=== PATIENT | female | born 1995 | race Caucasian/White ===

== ENCOUNTER 2021-02-08 19:23 | Inpatient (IN) | payer BC ==
[2021-02-08] MEDS ORDERED: Ondansetron 4 MG/2 ML SDV IVPUSH PRN (19:57)
[2021-02-08] MEDS ORDERED: Sodium Chloride 0.9% 10 ML Syringe FLUSH PRN (19:57)
[2021-02-08] MEDS ORDERED: Nalbuphine 10 MG/1 ML Vial IVPUSH PRN (19:57)
[2021-02-08] MEDS ORDERED: Ampicillin 2 GM in Sodium Chloride 0.9% 100 ML IV ONE (20:00)
[2021-02-08] MEDS ORDERED: Oxytocin/Lactated Ringers 10 UNIT/1,000 ML BAG IV SCH (20:00)
--- NOTE | 2021-02-08 20:01 | PCM.LDHP ---
L&D History of Present Illness - General Date of Service: 02/08/21 Admit Problem/Dx: Patient Status Order with Admit Dx/Problem 02/08/21 19:31 Patient Status [ADT] Routine 02/08/21 19:57 Patient Status [ADT] Routine Admission Diagnosis/Problem Admission Diagnosis/Problem Source of Information: Patient History Limitations: Reports: No Limitations - History of Present Illness Introduction:: 25 y/o at 39 5/7 wks who presents in labor. Contractions started today. Have picked up over course of evening. On L&D had SROM. 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: : 1 Para: 0 LMP (Approximate): - Past Surgical History HEENT Surgical History: Reports: Oral Surgery (wisdom tooth extraction) Social & Family History - Tobacco Use Tobacco Use Status *Q: Never Tobacco User - Alcohol Use Alcohol Use History: No - Recreational Drug Use Recreational Drug Use: No H&P Review of Systems - Review of Systems: Review Of Systems: See Below General: Reports: No Symptoms Pulmonary: Reports: No Symptoms Cardiovascular: Reports: No Symptoms Gastrointestinal: Reports: No Symptoms Genitourinary: Reports: No Symptoms Musculoskeletal: Reports: No Symptoms Neurological: Reports: No Symptoms L&D Exam - Exam Exam: See Below - OB Specific Contraction Intensity: Moderate to Strong Movement: Active Heart Tones: Present Heart Tones per Min: 140 Heart Rate (FHR) Variability: Moderate (6-25 bmp) Presentation: Vertex - Exam General: Alert, Oriented, Cooperative Lungs: Clear to Auscultation, Normal Respiratory Effort Cardiovascular: Regular Rate, Regular Rhythm GI/Abdominal Exam: Soft, Non-Tender Genitourinary: Normal external exam Extremities: Normal Inspection Skin: Warm, Dry, Intact - Patient Data Result Diagrams: 02/08/21 20:10 - Problem List (1) 39 weeks gestation of SNOMED Code(s): 20432390 ICD Code: Z3A.39 - 39 WEEKS GESTATION OF Status: Acute Current Visit: Yes (2) GBS (group B Streptococcus carrier), +RV culture, currently SNOMED Code(s): 0621331917570, 328328063, 6219444918344 ICD Code: O99.820 - STREPTOCOCCUS B CARRIER STATE COMPLICATING Status: Acute Current Visit: Yes Problem List Initiated/Reviewed/Updated: Yes Orders Last 24hrs: Active Orders 24 hr Category Date Time Status Patient Status [ADT] Routine ADT 02/08/21 19:31 Active Patient Status [ADT] Routine ADT 02/08/21 19:57 Active Activity as Tolerated [RC] PFP Care 02/08/21 19:57 Active Communication Order [RC] ASDIRECTED Care 02/08/21 19:57 Active Heart Tones [RC] ASDIRECTED Care 02/08/21 19:58 Active Non Stress Test [RC] PER UNIT ROUTINE Care 02/08/21 19:31 Active Notify Provider [RC] PRN Care 02/08/21 19:57 Active Peripheral IV Care [RC] . DIRECTED Care 02/08/21 19:58 Active Vital Signs [RC] PER UNIT ROUTINE Care 02/08/21 19:31 Active CBC W/O DIFF,HEMOGRAM [HEME] Routine Lab 02/08/21 19:57 Ordered CORONAVIRUS COVID-19 PRASANNA [MOLEC] Stat Lab 02/08/21 19:59 Ordered HEP C VIRUS AB [REF] Routine Lab 02/08/21 19:57 Ordered RAPID PLASMA REAGIN,RPR [CHEM] Routine Lab 02/08/21 19:57 Ordered TYPE AND SCREEN [BBK] Routine Lab 02/08/21 19:57 Ordered Ampicillin 1 gm Med 02/08/21 20:00 Ordered Sodium Chloride 0.9% [Normal Saline] 100 ml IV Q4H Ampicillin 2 gm Med 02/08/21 19:57 Ordered Sodium Chloride 0.9% [Normal Saline] 100 ml IV ONETIME Lactated Ringers [Ringers, Lactated] 1,000 ml Med 02/08/21 20:00 Ordered IV ASDIRECTED Nalbuphine [Nubain] Med 02/08/21 19:57 Ordered 10 mg IVPUSH Q2H PRN Ondansetron [Zofran] Med 02/08/21 19:57 Ordered 4 mg IVPUSH Q4H PRN Oxytocin/Lactated Ringers [Pitocin in LR 10 Units/1,000 Med 02/08/21 20:00 Ordered ML] 10 unit in 1,000 ml IV .CONTINUOUS Sodium Chloride 0.9% [Saline Flush] Med 02/08/21 19:57 Ordered 10 ml FLUSH ASDIRECTED PRN Electronic Heart Tones Ext w TOCO [WOMSER] Ot 02/08/21 19:57 Ordered Routine Electronic Heart Tones Internal [WOMSER] Per Unit Ot 02/08/21 19:57 Ordered Routine Peripheral IV Insertion Adult [OM.PC] Routine Ot 02/08/21 19:57 Ordered Resuscitation Status Routine Resus Stat 02/08/21 19:30 Ordered Assessment/Plan Comment:: * Labs done on admission, normal * GBS positive, has been receiving Ampicillin * Epidural in place * Anticipate
[2021-02-08] MEDS: Lactated Ringers 1,000 ML IV SCH ×3 (21:20→23:55)
[2021-02-08] MEDS ORDERED: diphenhydrAMINE 50 MG/ML SDV IVPUSH PRN (22:19)
[2021-02-08] MEDS ORDERED: ePHEDrine 50 MG/ML SDV IVPUSH PRN (22:19)
[2021-02-08] MEDS ORDERED: fentaNYL 100 MCG/2 ML SDV EPIDUR PRN (22:19)
[2021-02-08] MEDS ORDERED: Bupivacaine/fentaNYL/NS 100 ML Bag EPIDUR PRN (22:19)
--- NOTE | 2021-02-08 22:52 | PCM.PREANE ---
Preanesthetic Assessment - Procedure Proposed Procedure: epidural - Anesthesia/Transfusion/Family Hx Anesthesia History: Prior Anesthesia Without Reaction Family History of Anesthesia Reaction: No Transfusion History: No Prior Transfusion(s) - Review of Systems General: Fatigue Pulmonary: No Symptoms Cardiovascular: No Symptoms Gastrointestinal: Abdominal Pain (labor) Neurological: No Symptoms Other: Reports: None - Physical Assessment Vital Signs: Last Vital Signs Temp 37.1 C 02/08/21 19:31 Pulse 79 02/08/21 19:31 Resp 15 02/08/21 19:31 BP 139/85 02/08/21 19:31 Pulse Ox 100 02/08/21 19:31 Height: 1.63 m Weight: 73.028 kg ASA Class: 2 Mental Status: Alert & Oriented x3 Airway Class: Mallampati = 1 Dentition: Reports: Normal Dentition Thyro-Mental Finger Breadths: 3 Mouth Opening Finger Breadths: 3 ROM/Head Extension: Full Lungs: Clear to Auscultation, Normal Respiratory Effort Cardiovascular: Regular Rate, Regular Rhythm - Lab Values: Laboratory Last Values WBC 12.80 K/mm3 (3.98-10.04) H 02/08/21 20:10 RBC 3.66 M/mm3 (3.98-5.22) L 02/08/21 20:10 Hgb 11.9 gm/dl (11.2-15.7) 02/08/21 20:10 Hct 35.0 % (34.1-44.9) 02/08/21 20:10 MCV 95.6 fl (79.4-94.8) H 02/08/21 20:10 MCH 32.5 pg (25.6-32.2) H 02/08/21 20:10 MCHC 34.0 g/dl (32.2-35.5) 02/08/21 20:10 RDW Std Deviation 42.7 fL (36.4-46.3) 02/08/21 20:10 Plt Count 220 K/mm3 (182-369) 02/08/21 20:10 MPV 10.9 fl (9.4-12.3) 02/08/21 20:10 RPR Non-reactive (NONREACTIVE) 02/08/21 20:10 SARS-CoV-2 RNA (PRASANNA) Negative (NEGATIVE) 02/08/21 20:30 Blood Type B POSITIVE 02/08/21 20:10 Gel Antibody Screen Negative 02/08/21 20:10 - Allergies Allergies/Adverse Reactions: Allergies Allergy/AdvReac Type Severity Reaction Status Date / Time No Known Allergies Allergy Verified 02/06/21 10:32 - Anesthesia Plan Pre-Op Medication Ordered: None - Acknowledgements Anesthesia Type Planned: Epidural Pt an Appropriate Candidate for the Planned Anesthesia: Yes Alternatives and Risks of Anesthesia Discussed w Pt/Guardian: Yes Pt/Guardian Understands and Agrees with Anesthesia Plan: Yes PreAnesthesia Questionnaire Gastrointestinal History: Reports: GERD - Past Surgical History HEENT Surgical History: Reports: Other (See Below) Other HEENT Surgeries/Procedures: wisdom tooth extraction - SUBSTANCE USE Tobacco Use Status *Q: Never Tobacco User Tobacco Use Within Last Twelve Months: No Second Hand Smoke Exposure: No Recreational Drug Use History: No - HOME MEDS Home Medications: Home Meds Vit #76/Iron,Carb/Fa [Prenatabs Rx] 1 each PO DAILY 02/06/21 [History] - CURRENT (IN HOUSE) MEDS Current Meds: Current Medications Diphenhydramine HCl (Diphenhydramine 50 Mg/Ml Sdv) 25 mg IVPUSH Q6H PRN PRN Reason: pruritis Ephedrine Sulfate (Ephedrine 50 Mg/Ml Sdv) 5 mg IVPUSH ASDIRECTED PRN PRN Reason: Hypotension Fentanyl (Fentanyl 100 Mcg/2 Ml Sdv) 100 mcg EPIDUR Q3H PRN PRN Reason: Pain Last Admin: 02/08/21 22:33 Dose: 100 mcg Documented by: Fentanyl/Bupivacaine HCl (Bupivacaine/Fentanyl/Ns 100 Ml Bag) 100 ml EPIDUR ASDIRECTED PRN PRN Reason: Pain Last Admin: 02/08/21 22:33 Dose: 100 ml Documented by: Lactated Ringer's (Ringers, Lactated) 1,000 mls @ 100 mls/hr IV ASDIRECTED KD Last Admin: 02/08/21 22:33 Dose: 100 mls/hr Documented by: Ampicillin Sodium 1 gm/ Sodium (Chloride) 100 mls @ 200 mls/hr IV Q4H KD Oxytocin/Lactated Ringer's (Pitocin In Lr 10 Units/1,000 Ml) 10 unit in 1,000 mls @ 500 mls/hr IV .CONTINUOUS KD Nalbuphine HCl (Nalbuphine 10 Mg/1 Ml Vial) 10 mg IVPUSH Q2H PRN PRN Reason: Pain Ondansetron HCl (Ondansetron 4 Mg/2 Ml Sdv) 4 mg IVPUSH Q4H PRN PRN Reason: Nausea/Vomiting Sodium Chloride (Sodium Chloride 0.9% 10 Ml Syringe) 10 ml FLUSH ASDIRECTED PRN PRN Reason: Keep Vein Open Discontinued Medications Ampicillin Sodium 2 gm/ Sodium (Chloride) 100 mls @ 200 mls/hr IV ONETIME ONE Stop: 02/08/21 20:29 Last Admin: 02/08/21 21:20 Dose: 200 mls/hr Documented by:
[2021-02-09] MEDS: Ampicillin 1 GM in Sodium Chloride 0.9% 100 ML IV SCH ×2 (00:53→05:03)
[2021-02-09] MEDS ORDERED: Oxytocin/Lactated Ringers 10 UNIT/1,000 ML BAG IV SCH (02:30)
[2021-02-09] MEDS ORDERED: Misoprostol 200 MCG Tab ONE (05:43)
--- NOTE | 2021-02-09 05:50 | PCM.DEL ---
L & D Note - General Info Date of Service: 02/09/21 - Delivery Note Labor: Spontaneous Delivery Outcome: Livebirth Delivery Method: Spontaneous Vaginal Delivery-Single Delivery Mode: Vacuum Extraction Presentation: Right Occiput Anterior (HENRY) Nuchal Cord: Present Anesthesia Type: Epidural Amniotic Fluid Description: Clear Episiotomy Type: None Laceration: 2nd Degree Suture type: Vicryl Suture size: 2-0 Placenta: Intact, Spontaneous Cord: 3 Vessels Estimated Blood Loss: 400 : Bulb Syringe, Stimulated, Warmed, [place] Used, Warmer Used Delivery Comments (Free Text/Narrative):: The patient was pushing in the dorsal lithotomy position. After 5 hours of pushing patient became exhausted and requested assistance. Sterile vaginal exam complete/complete/+3 station. head in HENRY presentation. Maternal pushing effort was good and the pelvis was felt to be adequate for an instrument assisted delivery. Given maternal exhaustion the decision was made to proceed with vacuum assisted vaginal delivery. The mushroom cup was placed without difficulty with care to avoid the vaginal side lora at 0526. Subsequent vacuum assisted vaginal delivery with pushing. Total pressure applied 550. Total pop offs: 1. Suction was removed following delivery of the head. Nuchal cord present, but tight and so not reduced. The remainder of the delivered without difficulty. Delivery at 0528. placed on maternal abdomen. The umbilical cord was clamped and cut and the infant was taken to the warmer. Placenta allowed time to separate and expelled intact. Inspection of the perineum following delivery with a 2nd degree laceration close to rectum. Rectal exam done and confirmed no involvement of rectal mucosa or rectal sphincter. Laceration repaired with a 2-0 Vicryl in the typical fashion. Patient with slight boggy tone after repair. Was given 600 mcg of buccal cytotec with good response - General Info Date of Service: 02/09/21 - Patient Data Vitals - Most Recent: Last Vital Signs Temp 37.1 C 02/08/21 19:31 Pulse 79 02/08/21 19:31 Resp 15 02/08/21 19:31 BP 139/85 02/08/21 19:31 Pulse Ox 100 02/08/21 19:31 Weight - Most Recent: 73.028 kg I&O - Last 24 Hours: Intake & Output 02/08/21 02/08/21 02/09/21 14:59 22:59 06:59 Intake Total 2200 Balance 2200 - Problem List & Annotations (1) 39 weeks gestation of SNOMED Code(s): 31839583 Code(s): Z3A.39 - 39 WEEKS GESTATION OF Status: Acute Current Visit: Yes (2) GBS (group B Streptococcus carrier), +RV culture, currently SNOMED Code(s): 6119723879596, 112571187, 2227049674120 Code(s): O99.820 - STREPTOCOCCUS B CARRIER STATE COMPLICATING Status: Acute Current Visit: Yes - Problem List Review Problem List Initiated/Reviewed/Updated: Yes - My Orders Last 24 Hours: My Active Orders 02/08/21 19:30 Resuscitation Status Routine 02/08/21 19:31 Patient Status [ADT] Routine Vital Signs [RC] PER UNIT ROUTINE 02/08/21 19:57 Patient Status [ADT] Routine Activity as Tolerated [RC] PFP Communication Order [RC] ASDIRECTED Notify Provider [RC] PRN Nalbuphine [Nubain] 10 mg IVPUSH Q2H PRN Ondansetron [Zofran] 4 mg IVPUSH Q4H PRN Sodium Chloride 0.9% [Saline Flush] 10 ml FLUSH ASDIRECTED PRN Electronic Heart Tones Ext w TOCO [WOMSER] Routine Electronic Heart Tones Internal [WOMSER] Per Unit Routine Peripheral IV Insertion Adult [OM.PC] Routine 02/08/21 19:58 Heart Tones [RC] ASDIRECTED Peripheral IV Care [RC] . DIRECTED 02/08/21 20:00 Lactated Ringers [Ringers, Lactated] 1,000 ml IV ASDIRECTED Oxytocin/Lactated Ringers [Pitocin in LR 10 Units/1,000 ML] 10 unit in 1,000 ml IV .CONTINUOUS 02/08/21 20:10 HEP C VIRUS AB [REF] Routine 02/09/21 00:00 Ampicillin 1 gm Sodium Chloride 0.9% [Normal Saline] 100 ml IV Q4H 02/09/21 02:30 Oxytocin/Lactated Ringers [Pitocin in LR 10 Units/1,000 ML] 10 unit in 1,000 ml IV TITRATE - Assessment Assessment:: PPD#0 - Plan Plan:: * Routine cares * Breast feeding * Discharge home in 1-2 days
[2021-02-09] MEDS ORDERED: Misoprostol 200 MCG Tab PO STA (05:52)
[2021-02-09] MEDS ORDERED: Bupivacaine 0.25% 10 ML SDV ONE (06:00)
[2021-02-09] MEDS ORDERED: Docusate Sodium 100 MG Cap PO PRN (06:38)
[2021-02-09] MEDS ORDERED: Benzocaine/Menthol 20%-0.5% Spray 56 GM Canister TOP PRN (06:38)
--- NOTE | 2021-02-09 07:24 | PCM48HPAN ---
Post Anesthesia Note - EVALUATION WITHIN 48HRS OF ANESTHETIC Vital Signs in Normal Range: Yes Patient Participated in Evaluation: Yes Respiratory Function Stable: Yes Airway Patent: Yes Cardiovascular Function Stable: Yes Hydration Status Stable: Yes Pain Control Satisfactory: Yes Nausea and Vomiting Control Satisfactory: Yes Mental Status Recovered: Yes Vital Signs: Last Vital Signs Temp 98.7 F 02/08/21 19:31 Pulse 79 02/08/21 19:31 Resp 15 02/08/21 19:31 BP 139/85 02/08/21 19:31 Pulse Ox 100 02/08/21 19:31
[2021-02-09] MEDS: Ibuprofen 600 MG Tab PO PRN ×3 (08:05→20:29)
[2021-02-09] MEDS: Witch Hazel Medicated Pads 40/Jar TOP PRN (08:05)
[2021-02-09] MEDS: Acetaminophen 325 MG Tab PO PRN (17:58)
[2021-02-10] MEDS: Acetaminophen 325 MG Tab PO PRN ×2 (03:53→15:26)
[2021-02-10] MEDS: Ibuprofen 600 MG Tab PO PRN ×2 (03:54→11:55)
--- NOTE | 2021-02-10 08:03 | PCM.DCSUM1 ---
Discharge Summary - Discharge Data Discharge Date: 02/10/21 Discharge Disposition: Home, Self-Care 01 Condition: Good - Referral to Home Health Primary Care Physician: Velma Ron MD - Discharge Diagnosis/Problem(s) (1) 39 weeks gestation of SNOMED Code(s): 51850503 ICD Code: Z3A.39 - 39 WEEKS GESTATION OF Status: Acute Current Visit: Yes (2) GBS (group B Streptococcus carrier), +RV culture, currently SNOMED Code(s): 6041982957650, 200632098, 5992115364763 ICD Code: O99.820 - STREPTOCOCCUS B CARRIER STATE COMPLICATING Status: Acute Current Visit: Yes (3) Vacuum extraction, delivered, current hospitalization SNOMED Code(s): 438890049 ICD Code: O66.5 - ATTEMPTED APPLICATION OF VACUUM EXTRACTOR AND FORCEPS Status: Acute Current Visit: Yes - Patient Summary/Data Complications: None Consults: None Recommended Follow-up Testing/Procedures: None Hospital Course: 25 y/o at 39 5/7 wks who presented in labor. Progressed well to complete dilation. After 5 hours of pushing did become exhausted and requested vacuum assistance. This was done. See delivery note. did well and was discharged home on PPD#1 - Patient Instructions Diet: Regular Diet as Tolerated Activity: As Tolerated Activity, Other: Pelvic rest for 6 weeks Driving: May Drive Today Showering/Bathing: May Shower Showering/Bathing, Other: May Bathe Notify Provider of: Fever, Increased Pain, Swelling and Redness, Drainage, Nausea and/or Vomiting - Discharge Plan *PRESCRIPTION DRUG MONITORING PROGRAM REVIEWED*: No *COPY OF PRESCRIPTION DRUG MONITORING REPORT IN PATIENT ORLY: No Home Medications: Home Meds Vit #76/Iron,Carb/Fa [Prenatabs Rx] 1 each PO DAILY 02/06/21 [History] Docusate Sodium [Colace] 100 mg PO BID PRN cap 02/10/21 [Rx] Ibuprofen [Motrin] 600 mg PO Q6H PRN tablet 02/10/21 [Rx] Referrals: Velma Ron MD [Primary Care Provider] - (3 weeks for check ) - Discharge Summary/Plan Comment DC Time >30 min.: No - Patient Data Vitals - Most Recent: Last Vital Signs Temp 36.7 C 02/10/21 03:58 Pulse 86 02/10/21 03:58 Resp 14 02/10/21 03:58 BP 125/75 02/10/21 03:58 Pulse Ox 95 02/10/21 03:58 Weight - Most Recent: 73.028 kg Med Orders - Current: Current Medications Acetaminophen (Acetaminophen 325 Mg Tab) 650 mg PO Q4H PRN PRN Reason: mild pain or fever Last Admin: 02/10/21 03:53 Dose: 650 mg Documented by: Benzocaine/Menthol (Benzocaine/Menthol 20%-0.5% [place] 56 Gm Canister) 0 gm TOP ASDIRECTED PRN PRN Reason: Perineal Comfort Measure Last Admin: 02/09/21 08:05 Dose: 1 canister Documented by: Docusate Sodium (Docusate Sodium 100 Mg Cap) 100 mg PO BID PRN PRN Reason: Constipation Ibuprofen (Ibuprofen 600 Mg Tab) 600 mg PO Q6H PRN PRN Reason: Mild pain or fever Last Admin: 02/10/21 03:54 Dose: 600 mg Documented by: Key Gatica (Key Gatica Medicated Pads 40/Jar) 1 pad TOP ASDIRECTED PRN PRN Reason: Perineal Comfort Measure Last Admin: 02/09/21 08:05 Dose: 1 container Documented by: Discontinued Medications Bupivacaine HCl (Bupivacaine 0.25% 10 Ml Sdv) 10 ml .ROUTE .STK-MED ONE Stop: 02/09/21 06:01 Diphenhydramine HCl (Diphenhydramine 50 Mg/Ml Sdv) 25 mg IVPUSH Q6H PRN PRN Reason: pruritis Ephedrine Sulfate (Ephedrine 50 Mg/Ml Sdv) 5 mg IVPUSH ASDIRECTED PRN PRN Reason: Hypotension Fentanyl (Fentanyl 100 Mcg/2 Ml Sdv) 100 mcg EPIDUR Q3H PRN PRN Reason: Pain Last Admin: 02/08/21 22:33 Dose: 100 mcg Documented by: Fentanyl/Bupivacaine HCl (Bupivacaine/Fentanyl/Ns 100 Ml Bag) 100 ml EPIDUR ASDIRECTED PRN PRN Reason: Pain Last Admin: 02/08/21 22:33 Dose: 100 ml Documented by: Lactated Ringer's (Ringers, Lactated) 1,000 mls @ 100 mls/hr IV ASDIRECTED KD Last Admin: 02/08/21 23:55 Dose: 100 mls/hr Documented by: Ampicillin Sodium 2 gm/ Sodium (Chloride) 100 mls @ 200 mls/hr IV ONETIME ONE Stop: 02/08/21 20:29 Last Admin: 02/08/21 21:20 Dose: 200 mls/hr Documented by: Ampicillin Sodium 1 gm/ Sodium (Chloride) 100 mls @ 200 mls/hr IV Q4H KD Last Admin: 02/09/21 05:03 Dose: 200 mls/hr Documented by: Oxytocin/Lactated Ringer's (Pitocin In Lr 10 Units/1,000 Ml) 10 unit in 1,000 mls @ 500 mls/hr IV .CONTINUOUS KD Oxytocin/Lactated Ringer's (Pitocin In Lr 10 Units/1,000 Ml) 10 unit in 1,000 mls @ 12 mls/hr IV TITRATE KD; Protocol Last Titration: 02/09/21 04:34 Dose: 6 munits/min, 36 mls/hr Documented by: Miscellaneous Medication (Phenylephrine Hcl In 0.9% Nacl 1 Mg/10 Ml Syringe) 1 mg .ROUTE .STK-MED ONE Stop: 02/09/21 06:01 Misoprostol (Misoprostol 200 Mcg Tab) Confirm Administered Dose 600 mcg .ROUTE .STK-MED ONE Stop: 02/09/21 05:44 Last Admin: 02/09/21 06:44 Dose: Not Given Documented by: Misoprostol (Misoprostol 200 Mcg Tab) 600 mcg PO NOW STA Stop: 02/09/21 05:53 Last Admin: 02/09/21 05:40 Dose: 600 mcg Documented by: Nalbuphine HCl (Nalbuphine 10 Mg/1 Ml Vial) 10 mg IVPUSH Q2H PRN PRN Reason: Pain Ondansetron HCl (Ondansetron 4 Mg/2 Ml Sdv) 4 mg IVPUSH Q4H PRN PRN Reason: Nausea/Vomiting Sodium Chloride (Sodium Chloride 0.9% 10 Ml Syringe) 10 ml FLUSH ASDIRECTED PRN PRN Reason: Keep Vein Open
[2021-02-10] MEDS: Witch Hazel Medicated Pads 40/Jar TOP PRN (12:01)
== END 2021-02-10 16:25 | disposition home or self-care (01) | DRG 560 ==
LOC: JD.OBCHECK 19:23 → JD.OB 19:27 → JD.OBCHECK 19:57 → JD.OB 20:12 → OBSVTOIN 02-09 05:27 → JD.OB 02-09 05:28
PROVIDERS: ADMIT Obstetrics & Gynecology; ATTEND Obstetrics & Gynecology
PROC: 10D07Z6 Extraction of Products of Conception, Vacuum, Via Natural or Artificial Opening (ICD-10-PCS; principal; 2021-02-09)
PROC: 3E0R3BZ Introduction of Anesthetic Agent into Spinal Canal, Percutaneous Approach (ICD-10-PCS; 2021-02-09)
PROC: 10907ZC Drainage of Amniotic Fluid, Therapeutic from Products of Conception, Via Natural or Artificial Opening (ICD-10-PCS; 2021-02-09)
PROC: 0KQM0ZZ Repair Perineum Muscle, Open Approach (ICD-10-PCS; 2021-02-09)
DX: O99.824 Streptococcus B carrier state complicating childbirth (principal); Z3A.39 39 weeks gestation of pregnancy; Z37.0 Single live birth; O70.1 Second degree perineal laceration during delivery; O69.1XX0 Labor and delivery complicated by cord around neck, with compression, not applicable or unspecified; Z20.822 Contact with and (suspected) exposure to COVID-19
CPT/HCPCS: 01967; 36415; 51701; 59025; 59409; 85027; 86592; 86803; 86850; 86900; 86901; A9270-GY; J0290; J2370; J2590; J3010; J3490; J7120; U0002